=== PATIENT | female | born 1965 | race Caucasian/White ===

== ENCOUNTER 2019-04-03 07:45 | Outpatient (CLI) | payer BC ==
[2019-04-03 09:59] LABS: BASOPHILS % (AUTO) 0.5 %; EOSINOPHILS # (AUTO) 0.1 10^3/uL (0.0-0.7); EOSINOPHILS % (AUTO) 1.8 %; HGB - HEMOGLOBIN 14.3 g/dL (12.0-16.0); LYMPHOCYTES # (AUTO) 2.6 10^3/uL (1.5-3.5); LYMPHOCYTES % (AUTO) 34.5 %; MEAN CORPUSCULAR HEMOGLOBIN 28.5 pg (27.0-31.0); MEAN CORPUSCULAR HGB CONC 31.8 g/dL (32.0-36.0); MEAN CORPUSCULAR VOLUME 89.4 fL (81.0-99.0); MEAN PLATELET VOLUME 10.4 fL (7.9-10.8); MONOCYTES # (AUTO) 0.6 10^3/uL (0.0-1.0); MONOCYTES % (AUTO) 7.6 %; NEUTROPHILS # (AUTO) 4.2 10^3/uL (1.5-6.6); NEUTROPHILS % (AUTO) 55.2 %; PLT - PLATELET COUNT 299 10^3/uL (130-450); RED BLOOD COUNT 5.02 10^6/uL (4.20-5.40); RED CELL DISTRIBUTION WIDTH 14.4 % (12.0-15.0); WHITE BLOOD COUNT 7.6 x10^3/uL (4.8-10.8)
[2019-04-03 10:17] LABS: ALBUMIN 3.9 g/dL (3.2-5.5); ALBUMIN/GLOBULIN RATIO 1.2 (1.0-2.2); ALKALINE PHOSPHATASE 48 IU/L (42-121); ALT ALANINE AMINOTRANSFERASE 16 IU/L (10-60); AST ASPARTATE AMINOTRANSFERASE 16 IU/L (10-42); BILIRUBIN,TOTAL 0.6 mg/dL (0.2-1.0); BUN - BLOOD UREA NITROGEN 35 mg/dL (6-20); CALCIUM 9.3 mg/dL (8.5-10.3); CARBON DIOXIDE - CO2 23 mmol/L (21-32); CHLORIDE 107 mmol/L (101-111); CHOL/HDL RATIO 2.9 (<4.4); CHOLESTEROL 206 mg/dL; GFR - MDRD 58 (>89); GLUCOSE 102 mg/dL (70-100); HDL CHOLESTEROL 70 mg/dL; LDL CHOLESTEROL,CALCULATED 121 mg/dL; LDL/HDL RATIO 1.7 (<4.4); SODIUM 143 mmol/L (135-145); TOTAL PROTEIN 7.2 g/dL (6.7-8.2); VLDL CHOLESTEROL 15 mg/dL
[2019-04-03 10:22] LABS: HEMOGLOBIN A1C 0.63 g/dL
== END 2019-04-03 07:46 | disposition home or self-care (01) ==
LOC: LAB.S 07:45
PROVIDERS: ATTEND Physician Assistant
DX: Z00.00 Encounter for general adult medical examination without abnormal findings (principal); I10 Essential (primary) hypertension; E78.5 Hyperlipidemia, unspecified; R73.9 Hyperglycemia, unspecified
CPT/HCPCS: 36415; 80053; 80061; 83036; 83721; 84443; 85025

== ENCOUNTER 2019-05-02 07:44 | Outpatient (CLI) | payer BC | END 2019-05-02 07:45 | disposition home or self-care (01) | LOC: LAB.S 07:44 | PROVIDERS: ATTEND Physician Assistant | DX: E55.9 Vitamin D deficiency, unspecified (principal) | CPT/HCPCS: 36415; 82306 ==

== ENCOUNTER 2019-05-10 15:56 | Observation (INO) | payer BC ==
[~2019-05-10 15:56] MED LIST: DEXAMETHASONE 4 MG/ML VIAL IVP ONE; GLYCOPYRROLATE 1 MG/5 ML VIAL IVP ONE; KETOROLAC 30 MG/ML VIAL IVP ONE; MIDAZOLAM 2 MG/2 ML VIAL IVP ONE; NEOSTIGMINE 1 MG/1 ML 10 ML MDV IVP ONE; ONDANSETRON 4 MG/2 ML VIAL IVP ONE; PROPOFOL 200 MG/20 ML VIAL IVP ONE; ROCURONIUM 50 MG/5 ML VIAL IVP ONE; fentaNYL 250 MCG/5 ML VIAL IVP ONE
--- NOTE | 2019-05-10 16:33 | XRAY Report ---
Reason: pain Procedure Date: 05/10/2019 Accession Number: [id number] / [id number] Procedure: XR - Chest 1 View X-Ray CPT Code: 93387 FULL RESULT: EXAM: CHEST RADIOGRAPHY EXAM DATE: 05/10/2019 04:21 PM. CLINICAL HISTORY: Upper abdomen pain. Sharp back pain. COMPARISON: None. TECHNIQUE: 1 view. FINDINGS: Lungs/Pleura: No focal opacities evident. No pleural effusion. No pneumothorax. Mediastinum: Within exam limitations, the cardiomediastinal contour is normal. Other: Degenerative changes of both glenohumeral joints, otherwise no bony abnormalities identified. No free air. IMPRESSION: Degenerative changes of both glenohumeral joints noted, otherwise unremarkable single view chest. RADIA
[2019-05-10 16:37] LABS: BASOPHILS % (AUTO) 0.4 %; EOSINOPHILS # (AUTO) 0.1 10^3/uL (0.0-0.7); HGB - HEMOGLOBIN 13.5 g/dL (12.0-16.0); LYMPHOCYTES # (AUTO) 2.8 10^3/uL (1.5-3.5); LYMPHOCYTES % (AUTO) 26.6 %; MEAN CORPUSCULAR HEMOGLOBIN 27.6 pg (27.0-31.0); MEAN CORPUSCULAR HGB CONC 31.3 g/dL (32.0-36.0); MEAN CORPUSCULAR VOLUME 88.3 fL (81.0-99.0); MEAN PLATELET VOLUME 9.5 fL (7.9-10.8); MONOCYTES # (AUTO) 0.9 10^3/uL (0.0-1.0); MONOCYTES % (AUTO) 8.4 %; NEUTROPHILS # (AUTO) 6.5 10^3/uL (1.5-6.6); NEUTROPHILS % (AUTO) 63.3 %; PLT - PLATELET COUNT 268 10^3/uL (130-450); RED BLOOD COUNT 4.89 10^6/uL (4.20-5.40); RED CELL DISTRIBUTION WIDTH 14.5 % (12.0-15.0); WHITE BLOOD COUNT 10.3 x10^3/uL (4.8-10.8)
[2019-05-10 16:58] LABS: ALBUMIN 3.9 g/dL (3.2-5.5); BILIRUBIN,TOTAL 0.4 mg/dL (0.2-1.0); CALCIUM 9.7 mg/dL (8.5-10.3); TOTAL PROTEIN 7.7 g/dL (6.7-8.2)
[2019-05-10] MEDS ORDERED: HYDROmorphone 1 MG/ML CARPUJECT IVP STA (17:18)
[2019-05-10] MEDS ORDERED: ONDANSETRON 4 MG/2 ML VIAL IVP STA (17:18)
[2019-05-10] MEDS ORDERED: SODIUM CHLORIDE 0.9% 1,000 ML IV ONE (17:19)
--- NOTE | 2019-05-10 17:21 | ED Physician Documentation ---
History of Present Illness - Stated complaint Stated Complaint: BACK/CHEST PX - Additonal information Additional information: This is a 54-year-old female with a history of diverticulitis, HLD, who presents with epigastric abdominal pain radiating to her back. Patient states that she has had several episodes of this in the past after eating, but they have always resolved fairly quickly. Last night after dinner she began having pain in her epigastrium which radiates to the back and has worsened since then. She states the pain is currently severe, and worse with pressure on epigastrium and right upper quadrant. She has had pelvic surgeries, but no cholecystectomy or colin endectomy. She is nauseated but has not vomited. She denies changes to her bowel movements. No fever. Review of Systems Constitutional: denies: Fever Cardiac: denies: Chest pain / pressure Respiratory: denies: Dyspnea GI: reports: Abdominal Pain : denies: Dysuria Skin: denies: Rash Neurologic: denies: Generalized weakness Immunocompromised: denies: Immunocompromised PD PAST MEDICAL HISTORY - Past Medical History Neuro: Migraines GI: Diverticulitis - Past Surgical History General: Other (No cholecystectomy or appendectomy) - Allergies Allergies/Adverse Reactions: Allergies Allergy/AdvReac Type Severity Reaction Status Date / Time metronidazole [From Flagyl] AdvReac Nausea Verified 05/10/19 16:12 - Living Situation Living Arrangement: reports: At home - Social History Does the pt have substance abuse?: No - Family History Family history: reports: Non contributory PD ED PE NORMAL - Vitals Vital signs reviewed: Yes - General General: Alert and oriented X 3, No acute distress - HEENT HEENT: PERRL - Neck Neck: Supple, no meningeal sign - Cardiac Cardiac: RRR, No murmur - Respiratory Respiratory: Clear bilaterally - Abdomen Abdomen: Other (Soft, tender to palpation in the epigastrium in the right upper quadrant. Negative Summers sign. No lower abdominal tenderness. No left upper quadrant tenderness.) - Derm Derm: Warm and dry - Extremities Extremities: No deformity - Neuro Neuro: Alert and oriented X 3 - Psych Psych: Normal mood, Normal affect Results - Vitals Vitals: Vital Signs - 24 hr 05/10/19 05/10/19 05/10/19 16:05 18:00 19:12 Temperature 37 C Heart Rate 74 66 75 Respiratory 18 18 12 Rate Blood Pressure 151/73 H 122/84 H 111/68 O2 Saturation 97 98 98 05/10/19 05/10/19 20:23 21:22 Temperature Heart Rate 81 74 Respiratory 17 14 Rate Blood Pressure 130/94 H 130/87 H O2 Saturation 99 100 Oxygen O2 Source Room air - EKG (time done) 16:04 Other comments: Other comments (Rate 107, rhythm sinus tachycardia, axis normal. There is no ST segment elevation or depression. There is some T wave flattening in V2. QTc 458.) - Labs Labs: Laboratory Tests 05/10/19 05/10/19 05/10/19 16:29 16:29 16:29 WBC 10.3 RBC 4.89 Hgb 13.5 Hct 43.2 MCV 88.3 MCH 27.6 MCHC 31.3 L RDW 14.5 Plt Count 268 MPV 9.5 Neut # (Auto) 6.5 Lymph # (Auto) 2.8 [place] # (Auto) 0.9 Eos # (Auto) 0.1 Baso # (Auto) 0.0 Absolute Nucleated RBC 0.00 Nucleated RBC % 0.0 Sodium 142 Potassium 3.4 L Chloride 107 Carbon Dioxide 26 Anion Gap 9.0 BUN 33 H Creatinine 1.0 Estimated GFR (MDRD) 58 L Glucose 98 Calcium 9.7 Total Bilirubin 0.4 AST 16 ALT 14 Alkaline Phosphatase 54 Troponin I High Sens C-React Prot High Sens 27.1 Total Protein 7.7 Albumin 3.9 Globulin 3.8 Albumin/Globulin Ratio 1.0 Lipase 49 05/10/19 16:29 WBC RBC Hgb Hct MCV MCH MCHC RDW Plt Count MPV Neut # (Auto) Lymph # (Auto) [place] # (Auto) Eos # (Auto) Baso # (Auto) Absolute Nucleated RBC Nucleated RBC % Sodium Potassium Chloride Carbon Dioxide Anion Gap BUN Creatinine Estimated GFR (MDRD) Glucose Calcium Total Bilirubin AST ALT Alkaline Phosphatase Troponin I High Sens 2.6 C-React Prot High Sens Total Protein Albumin Globulin Albumin/Globulin Ratio Lipase - Rads (name of study) RUQ US Radiology: Other (Cholelithiasis and sonographic Summers sign present, concerning for cholecystitis. Possible echogenic mass/stone in the common bile duct, which is not consistently seen, and no CBD dilation) CXR Radiology: Other (No acute cardiopulmonary abnormality) PD MEDICAL DECISION MAKING - ED course Complexity details: considered differential (Biliary colic, cholecystitis, gastritis, dissection, PE, ACS, Pneumothorax, pneumonia) ED course: Patient is uncomfortable on initial exam, vital signs are unremarkable. She has focal tenderness in the epigastrium and especially in the right upper quadrant. She has no midline back tenderness. X-ray is unremarkable, CBC and CMP are also unremarkable. Troponin is negative, EKG has no signs of ischemia or dysrhythmia. Her oxygen saturation is normal, her heart rate is within normal limits, she has no signs of DVT, no history of blood clots, pulmonary embolism is highly unlikely. Her blood pressure is normal, and her pain is radiating from her RUQ, making aortic dissection exceedingly unlikely, particularly given that she has a better explanation for her pain. Ultrasound is obtained which shows Cholelithiasis, borderline wall thickening, and a sonographic Summers sign, concerning for cholecystitis. There was also question of an echogenic 6 mm structure/stone in the common bile duct, though this was not consistently seen, and patient has no signs of obstruction on her labs at this time. On repeat evaluation she continues to have abdominal pain and tenderness, though her vital signs remain stable. I discussed the results of work-up with the patient, she would like cholecystectomy - despite multiple doses of pain medications she continues to have abdominal symptoms. I contacted Dr. Swartz of surgery who admitted patient with plans for cholecystectomy. Departure - Departure Disposition: ED Place in Observation Clinical Impression: Cholecystitis Condition: Stable
--- NOTE | 2019-05-10 19:27 | Ultrasound Report ---
Reason: epigastric and RUQ pain after eating Procedure Date: 05/10/2019 Accession Number: [id number] / [id number] Procedure: US - Abdomen Limited CPT Code: FULL RESULT: EXAM: ABDOMEN ULTRASOUND LIMITED, RUQ EXAM DATE: 05/10/2019 07:00 PM. CLINICAL HISTORY: Epigastric and RUQ pain after eating. COMPARISON: None. TECHNIQUE: Real-time scanning was performed with static images obtained. FINDINGS: Liver: Mildly echogenic parenchyma. No masses. Normal overall size, 17.1 cm. Main portal vein flow: Hepatopetal. Gallbladder: Contracted with multiple large stones measuring as much as 1.6 cm. Borderline wall thickening measuring 3 mm. Localized tenderness over the gallbladder. Biliary System: CBD measures 5 mm. No intrahepatic or extrahepatic ductal dilatation. Echogenicity measuring about 6 mm in the common bile duct, not consistently seen, suspicious for stone. Other: Unremarkable right kidney and visualized pancreas. IMPRESSION: 1. Cholelithiasis with evidence of cholecystitis. 2. Possible common bile duct stone, but no ductal dilation at this time. 3. Mild fatty liver. RADIA
[2019-05-10] MEDS ORDERED: HYDROmorphone 2 MG/ML VIAL IVP STA (19:45)
[2019-05-10] MEDS ORDERED: ACETAMINOPHEN 1,000 MG/100 ML 100 ML IV PRN (22:03)
[2019-05-10] MEDS ORDERED: SODIUM CHLORIDE FLUSH 0.9% 10 ML SYRINGE IVP PRN (22:03)
[2019-05-10] MEDS ORDERED: HYDROmorphone PCA 20MG/100ML IV PRN (22:08)
[2019-05-10] MEDS ORDERED: LORazepam 2 MG/ML VIAL IVP PRN (22:11)
[2019-05-10] MEDS ORDERED: HYDROmorphone 2 MG/ML VIAL IVP SCH (23:00)
[2019-05-11] MEDS ORDERED: HYDROmorphone 2 MG/ML VIAL ONE ×4 (00:12→00:16)
[2019-05-11] MEDS: DEXTROSE 5%-0.45% NACL 1,000 ML IV SCH ×2 (00:34→08:13)
[2019-05-11] MEDS: PIPERACILLIN/TAZOBACTAM 3.375 GM in SODIUM CHLORIDE 0.9% MINIBAG 100 ML IV SCH ×3 (00:34→11:07)
[2019-05-11] MEDS: ONDANSETRON 4 MG/2 ML VIAL IVP PRN ×2 (00:34→08:13)
[2019-05-11] MEDS: SODIUM CHLORIDE FLUSH 0.9% 10 ML SYRINGE IVP SCH ×4 (00:34→23:43)
[2019-05-11 05:57] LABS: BASOPHILS % (AUTO) 0.4 %; EOSINOPHILS # (AUTO) 0.1 10^3/uL (0.0-0.7); EOSINOPHILS % (AUTO) 1.6 %; HGB - HEMOGLOBIN 11.7 g/dL (12.0-16.0); LYMPHOCYTES # (AUTO) 2.8 10^3/uL (1.5-3.5); LYMPHOCYTES % (AUTO) 35.9 %; MEAN CORPUSCULAR HEMOGLOBIN 27.7 pg (27.0-31.0); MEAN CORPUSCULAR HGB CONC 31.1 g/dL (32.0-36.0); MEAN CORPUSCULAR VOLUME 88.9 fL (81.0-99.0); MEAN PLATELET VOLUME 9.6 fL (7.9-10.8); MONOCYTES # (AUTO) 0.8 10^3/uL (0.0-1.0); MONOCYTES % (AUTO) 10.1 %; NEUTROPHILS % (AUTO) 51.7 %; PLT - PLATELET COUNT 208 10^3/uL (130-450); RED BLOOD COUNT 4.23 10^6/uL (4.20-5.40); RED CELL DISTRIBUTION WIDTH 14.2 % (12.0-15.0); WHITE BLOOD COUNT 7.7 x10^3/uL (4.8-10.8)
[2019-05-11 06:10] LABS: BILIRUBIN,TOTAL 0.7 mg/dL (0.2-1.0); CALCIUM 8.5 mg/dL (8.5-10.3); CREATININE 0.9 mg/dL (0.4-1.0); TOTAL PROTEIN 5.9 g/dL (6.7-8.2)
--- NOTE | 2019-05-11 10:35 | ANESTHESIA ---
Pre-Anesthesia VS, & Labs - Diagnosis symptomatic cholelithiasis - Procedure laparoscopic cholecystectomy Vital Signs: Temp Pulse Resp BP Pulse Ox 36.5 C 60 16 99/60 97 05/11/19 07:57 05/11/19 07:57 05/11/19 09:00 05/11/19 07:57 05/11/19 07:57 Height 5 ft 5 in Weight (kg) 98 kg Body Mass Index 35.9 - NPO >8 hours - Is Patient ?: No - Lab Results Current Lab Results: Laboratory Tests 05/11/19 05:23: Sodium 140, Potassium 3.3 L, Chloride 108, Carbon Dioxide 27, Anion Gap 5.0 L, BUN 23 H, Creatinine 0.9, Estimated GFR (MDRD) 65 L, Glucose 103 H, Calcium 8.5, Total Bilirubin 0.7, AST 50 H, ALT 36, Alkaline Phosphatase 53, Total Protein 5.9 L, Albumin 3.0 L, Globulin 2.9, Albumin/Globulin Ratio 1.0 05/11/19 05:23: WBC 7.7, RBC 4.23, Hgb 11.7 L, Hct 37.6, MCV 88.9, MCH 27.7, MCHC 31.1 L, RDW 14.2, Plt Count 208, MPV 9.6, Neut # (Auto) 4.0, Lymph # (Auto) 2.8, [place] # (Auto) 0.8, Eos # (Auto) 0.1, Baso # (Auto) 0.0, Absolute Nucleated RBC 0.00, Nucleated RBC % 0.0 05/10/19 16:29: Troponin I High Sens 2.6 05/10/19 16:29: C-React Prot High Sens 27.1 05/10/19 16:29: Sodium 142, Potassium 3.4 L, Chloride 107, Carbon Dioxide 26, Anion Gap 9.0, BUN 33 H, Creatinine 1.0, Estimated GFR (MDRD) 58 L, Glucose 98, Calcium 9.7, Total Bilirubin 0.4, AST 16, ALT 14, Alkaline Phosphatase 54, Total Protein 7.7, Albumin 3.9, Globulin 3.8, Albumin/Globulin Ratio 1.0, Lipase 49 05/10/19 16:29: WBC 10.3, RBC 4.89, Hgb 13.5, Hct 43.2, MCV 88.3, MCH 27.6, MCHC 31.3 L, RDW 14.5, Plt Count 268, MPV 9.5, Neut # (Auto) 6.5, Lymph # (Auto) 2.8, [place] # (Auto) 0.9, Eos # (Auto) 0.1, Baso # (Auto) 0.0, Absolute Nucleated RBC 0.00, Nucleated RBC % 0.0 Fish Bones: 05/11/19 05:23 05/11/19 05:23 Home Medications and Allergies Active Medications Hydromorphone HCl (Dilaudid Family Services Manager 20mg/100ml) 20 mg IV PRN PRN; Protocol PRN Reason: PAIN Last Admin: 05/11/19 00:57 Dose: 20 mg Dextrose/Sodium Chloride (D5.45ns) 1,000 mls @ 100 mls/hr IV .Q10H COUNTS INCLUDE 234 BEDS AT THE [facility] Last Admin: 05/11/19 08:13 Dose: 100 mls/hr Acetaminophen (Ofirmev) 100 mls @ 400 mls/hr IV Q6HR PRN PRN Reason: PAIN Piperacillin Sod/Tazobactam (Sod 3.375 gm/ Sodium Chloride) 100 mls @ 200 mls/hr IV Q6H DORIS Last Infusion: 05/11/19 07:33 Dose: Infused Lorazepam (Ativan Inj (Vial)) 0.5 mg IVP Q2H PRN PRN Reason: Anxiety Last Admin: 05/11/19 08:13 Dose: 0.5 mg Ondansetron HCl (Zofran Inj) 4 mg IVP Q6H PRN PRN Reason: Nausea / Vomiting Last Admin: 05/11/19 08:13 Dose: 4 mg Sodium Chloride (Normal Saline Flush 0.9%) 10 ml IVP 0100,0900,1700 DORIS Last Admin: 05/11/19 08:17 Dose: 10 ml Sodium Chloride (Normal Saline Flush 0.9%) 10 ml IVP PRN PRN PRN Reason: NEEDED PER PROVIDER ORDERS Allergies/Adverse Reactions: Allergies Allergy/AdvReac Type Severity Reaction Status Date / Time metronidazole [From Flagyl] AdvReac Nausea Verified 05/10/19 16:12 Anes History & Medical History - Anesthetic History Anesthesia Complications: reports: Post-Operative Nausea/Vomiting - Medical History Cardiovascular: reports: Hypertension Pulmonary: reports: None Gastrointestinal: reports: Diverticulitis Urinary: reports: None Neuro: reports: Migraines, Seizure disorder (once, had workup, takes topamax, none since and no furthur migraines) Musculoskeletal: reports: None Endocrine/Autoimmune: reports: None Blood Disorders: reports: None Skin: reports: None Smoking Status: Current every day smoker - Surgical History General: Other (No cholecystectomy or appendectomy) Gynecologic: section, Hysterectomy Orthopedic: ACL reconstruction Exam General: Alert Dental: WNL Mouth Opening: Greater than 4 Fingerbreadths Neck Mobility: Normal Mallampati classification: II Respiratory: Lungs clear Cardiovascular: Regular rate, Normal S1, Normal S2 Mental/Cognitive Status: Alert/Oriented X3 Plan Anesthesia Type: General Consent for Procedure(s) Verified and Reviewed: Yes Code Status: Attempt Resuscitation ASA classification: 2-Mild systemic disease Is this case an emergency?: No
[2019-05-11] MEDS ORDERED: SCOPOLAMINE PATCH TOP SCH (11:00)
[2019-05-11] MEDS ORDERED: POTASSIUM CHLOR 10 MEQ/100 ML 10 MEQ/100 ML BAG IV ONE (12:10)
[2019-05-11] MEDS ORDERED: BUPIVACAINE 0.5%-EPI 1:200000 PF 30 ML VIAL ONE (14:31)
[2019-05-11] MEDS ORDERED: LIDOCAINE-MPF 1% 30 ML VIAL ONE (14:31)
--- NOTE | 2019-05-11 14:41 | HISTORY & PHYSICAL EXAMINATION ---
HPI - Admitted From Admitted from: ED - History Obtained From Records Reviewed: RN notes reviewed, Old records reviewed History obtained from: Patient Exam limitations: No limitations - History of Present Illness Pain/Problem Location Description: Right Upper Quadrant Pain Severity at the worst: reports: Severe Pain Quality: reports: Sharp, Aching, Cramping, Throbbing Context-Pain started w/: reports: Eating, Position, Rest Timing: reports: Abrupt onset Duration: reports: Hours: (At least 12) Improved with: reports: Nothing Worsened by: reports: Inspiration, Movement, Palpation Associated symptoms: reports: Nausea, General Weakness PMH/PSH - Past Medical History Cardiovascular: positive: Hypertension Respiratory: positive: None Neuro: positive: Migraines, Seizure disorder (once, had workup, takes topamax, none since and no furthur migraines) Endocrine/Autoimmune: positive: None GI: positive: Diverticulitis : positive: None Psych: positive: Anxiety Musculoskeletal: positive: None Derm: positive: None - Past Surgical History General: positive: Other (No cholecystectomy or appendectomy) Ortho: positive: ACL reconstruction /LINER REPLACER: positive: section, Hysterectomy Social & Family Hx - Social History Smoking Status: Current every day smoker Does the pt have substance abuse?: No Additional Social History: 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 [employer] Status: Full Code Meds/Allgy - Home Medications Home Medications: Ambulatory Orders Medication Instructions Recorded Confirmed Atorvastatin Calcium 10 mg PO QPM 05/11/19 05/11/19 Ibuprofen/Diphenhydramine Cit 1 tab PO QPM 05/11/19 05/11/19 [Ibuprofen Pm Caplet] Sertraline HCl [Zoloft] 100 mg PO QPM 05/11/19 05/11/19 Topiramate [Topamax] 100 mg PO QPM 05/11/19 05/11/19 - Allergies Allergies/Adverse Reactions: Allergies Allergy/AdvReac Type Severity Reaction Status Date / Time metronidazole [From Flagyl] AdvReac Nausea Verified 05/10/19 16:12 Review of Systems - Constitutional Constitutional: reports: Fatigue, Weakness, Poor appetite - Eyes Eyes: denies: Irritation, Blurred vision - Ears, Nose & Throat Ears, Nose & Throat: denies: Tinnitus, Vertigo - Cardiovascular Cariovascular: reports: Lightheadedness. denies: Irregular heart rate, Palpitations, Chest pain - Respiratory Respiratory: denies: Cough, Wheezing, Snoring, Orthopnea - Gastrointestinal Gastrointestinal: reports: Abdominal pain, Nausea, Poor appetite - Genitourinary Genitourinary: denies: Dysuria, Frequency, Urgency - Musculoskeletal Musculoskeletal: denies: Muscle pain, Back pain, Muscle aches, Stiffness - Integumentary Integumentary: denies: Rash, Lesions - Neurological Neurological: denies: General weakness, Focal weakness - Endocrine Endocrine: denies: Polyuria, Polydypsia - Hematologic/Lymphatic Hematologic/Lymphatic: denies: Anemia, Bruising, Petechiae - All Other Systems All Other Systems: reports: Reviewed and negative Exam - Vital Signs Reviewed Vital Signs: Yes Vital Signs: Vital Signs x48h Temp Pulse Resp BP BP Pulse Ox 05/11/19 13:00 16 05/11/19 12:59 36.9 C 61 16 94/59 L 94 05/11/19 11:00 17 05/11/19 09:00 16 05/11/19 07:58 16 05/11/19 07:57 36.5 C 60 16 99/60 97 - Physical Exam General Appearance: positive: Alert, Moderate distress Eyes Bilateral: positive: Normal inspection, PERRL, EOMI ENT: positive: ENT inspection nml, Pharynx nml Neck: positive: Nml inspection, Thyroid nml, No JVD, Trachea midline. negative: Thyromegaly Respiratory: positive: Chest non-tender, No respiratory distress, Breath sounds nml Cardiovascular: positive: Regular rate & rhythm, No murmur, No gallop Peripheral Pulses: positive: 1+ Abdomen: positive: Nml bowel sounds, Tenderness, Other (Tender to palpation in the right upper quadrant. Positive voluntary guarding) Back: positive: Nml inspection, CVA tenderness (R). negative: CVA tenderness (L) Skin: positive: Color nml Extremities: positive: Non-tender Neurologic/Psychiatric: positive: Oriented x3, CN's nml (2-12) Results - Lab Results Fish Bones: 05/11/19 05:23 05/11/19 05:23 Other Lab Results: Lab Results x24hrs 05/11/19 05/11/19 05/10/19 Range/Units 05:23 05:23 16:29 WBC 7.7 (4.8-10.8) x10^3/uL RBC 4.23 (4.20-5.40) 10^6/uL Hgb 11.7 L (12.0-16.0) g/dL Hct 37.6 (37.0-47.0) % MCV 88.9 (81.0-99.0) fL MCH 27.7 (27.0-31.0) pg MCHC 31.1 L (32.0-36.0) g/dL RDW 14.2 (12.0-15.0) % Plt Count 208 (130-450) 10^3/uL MPV 9.6 (7.9-10.8) fL Neut # (Auto) 4.0 (1.5-6.6) 10^3/uL Lymph # (Auto) 2.8 (1.5-3.5) 10^3/uL [place] # (Auto) 0.8 (0.0-1.0) 10^3/uL Eos # (Auto) 0.1 (0.0-0.7) 10^3/uL Baso # (Auto) 0.0 (0.0-0.1) 10^3/uL Absolute Nucleated RBC 0.00 x10^3/uL Nucleated RBC % 0.0 /100WBC Sodium 140 (135-145) mmol/L Potassium 3.3 L (3.5-5.0) mmol/L Chloride 108 (101-111) mmol/L Carbon Dioxide 27 (21-32) mmol/L Anion Gap 5.0 L (6-13) BUN 23 H (6-20) mg/dL Creatinine 0.9 (0.4-1.0) mg/dL Estimated GFR (MDRD) 65 L (>89) Glucose 103 H (70-100) mg/dL Calcium 8.5 (8.5-10.3) mg/dL Total Bilirubin 0.7 (0.2-1.0) mg/dL AST 50 H (10-42) IU/L ALT 36 (10-60) IU/L Alkaline Phosphatase 53 (42-121) IU/L Troponin I High Sens 2.6 (2.3-14.8) pg/mL C-React Prot High Sens mg/L Total Protein 5.9 L (6.7-8.2) g/dL Albumin 3.0 L (3.2-5.5) g/dL Globulin 2.9 (2.1-4.2) g/dL Albumin/Globulin Ratio 1.0 (1.0-2.2) Lipase (22-51) U/L 05/10/19 05/10/19 05/10/19 Range/Units 16:29 16:29 16:29 WBC 10.3 (4.8-10.8) x10^3/uL RBC 4.89 (4.20-5.40) 10^6/uL Hgb 13.5 (12.0-16.0) g/dL Hct 43.2 (37.0-47.0) % MCV 88.3 (81.0-99.0) fL MCH 27.6 (27.0-31.0) pg MCHC 31.3 L (32.0-36.0) g/dL RDW 14.5 (12.0-15.0) % Plt Count 268 (130-450) 10^3/uL MPV 9.5 (7.9-10.8) fL Neut # (Auto) 6.5 (1.5-6.6) 10^3/uL Lymph # (Auto) 2.8 (1.5-3.5) 10^3/uL [place] # (Auto) 0.9 (0.0-1.0) 10^3/uL Eos # (Auto) 0.1 (0.0-0.7) 10^3/uL Baso # (Auto) 0.0 (0.0-0.1) 10^3/uL Absolute Nucleated RBC 0.00 x10^3/uL Nucleated RBC % 0.0 /100WBC Sodium 142 (135-145) mmol/L Potassium 3.4 L (3.5-5.0) mmol/L Chloride 107 (101-111) mmol/L Carbon Dioxide 26 (21-32) mmol/L Anion Gap 9.0 (6-13) BUN 33 H (6-20) mg/dL Creatinine 1.0 (0.4-1.0) mg/dL Estimated GFR (MDRD) 58 L (>89) Glucose 98 (70-100) mg/dL Calcium 9.7 (8.5-10.3) mg/dL Total Bilirubin 0.4 (0.2-1.0) mg/dL AST 16 (10-42) IU/L ALT 14 (10-60) IU/L Alkaline Phosphatase 54 (42-121) IU/L Troponin I High Sens (2.3-14.8) pg/mL C-React Prot High Sens 27.1 mg/L Total Protein 7.7 (6.7-8.2) g/dL Albumin 3.9 (3.2-5.5) g/dL Globulin 3.8 (2.1-4.2) g/dL Albumin/Globulin Ratio 1.0 (1.0-2.2) Lipase 49 (22-51) U/L - Diagnostic Imaging Results Diagnostic Imaging Results Comments: Cholelithiasis and cholecystitis with a possible common duct stone. Impression/Plan - Problem List Problem List: Cholelithiasis and cholecystitis with possible common duct stone. I have recommended laparoscopic cholecystectomy with attempted intraoperative cholangiogram. We have discussed the risks and benefits of the procedure and the patient has expressed a desire to continue with the plan.
[2019-05-11] MEDS ORDERED: IOTHALAMATE MEGLUMINE 50 ML VIAL ONE (15:03)
[2019-05-11] MEDS ORDERED: IOTHALAMATE MEGLUMINE 50 ML VIAL IVP ONE ×2 (15:03)
[2019-05-11] MEDS ORDERED: LIDOCAINE 1% 10 ML MDV SUBQ ONE (15:04)
[2019-05-11] MEDS ORDERED: BUPIVACAINE 0.5%-EPI 1:200000 PF 30 ML VIAL SUBQ ONE (15:04)
[2019-05-11] MEDS ORDERED: LACTATED RINGERS 1,000 ML IV ONE ×2 (15:04→16:53)
--- NOTE | 2019-05-11 15:47 | OPERATIVE REPORT ---
Operative Report - General Admit Date: 05/10/19 Procedure Date: 05/11/19 Planned Procedure: Laparoscopic Cholecystectomy with Intraoperative Cholangiogram5 Pre-Op Diagnosis: Acute cholecystitis with possible choledocholithiasis Procedure Performed: Laparoscopic cholecystectomy with intraoperative cholangiogram Post Op Diagnosis: Acute cholecystitis and cholelithiasis - Procedure Note Primary Surgeon: Maxime Anesthesia Provider: ELLEN Miramontes Anesthesia Technique: General ET tube, Local Pathology: Gall bladder in formalin to pathology Estimated Blood Loss (mL): 25 Findings: Normal cholangiogram with no evidence of common bile duct obstruction Complications: None apparent - Other Other Information/Narrative: Up waiting room and placed in the supine position on the operating table. Following successful induction of general endotracheal anesthesia, appropriate padding of all bony prominences, and placement of appropriate monitors, the abdomen was prepped and draped in the standard surgical fashion. A timeout was held per SCOAP protocol. All elements of the surgical safety checklist were followed before, during, and after this procedure. Following infiltration with local anesthetic to create a field block, an incision was created just inferior to the umbilicus and carried down through the skin and subcutaneous tissue to reveal the fascia below. 2-0 Vicryl sutures were placed on either side of the midline and the abdomen was entered under direct vision using a 15 blade scalpel. A 12 mm blunt Dao balloon trocar was placed in the abdominal cavity and it was insufflated to 15 mmHg pressure. The patient was placed in reverse Trendelenburg position with the left side rotated toward the floor. A 5 mm trocar was placed in the epigastrium and 2 more in the right upper quadrant again following infiltration with local anesthetic. We immediately visualized the gallbladder which was acutely edematous with omental adhesions. The fundus of the gallbladder was grasped with an Allis clamp and elevated over the dome of the liver. This revealed the region of the cholecysto hepatoduodenal ligament. Careful dissection was undertaken to reveal the fundus and neck of the gallbladder and then to define the cystic duct and cystic artery. Cystic duct was addressed with a clip distally.A charlene was created proximal to the clip so that we might perform a cholangiogram. A taut Cholangiocath was placed in this opening and a cholangiogram performed. This revealed free flow of contrast into the duodenum and normal-appearing intra-and extrahepatic biliary radicles. There was no clear evidence of an obstruction.The catheter was then removed. The duct was clipped 3 times proximally and divided. The cystic artery was addressed with hemoclips proximally and distally and divided. The gallbladder was then liberated from its bed in the liver using Bovie cautery. It was noted to be acutely edematous. It was placed in a endoscopic catchment bag and removed by the umbilical port with a camera in the epigastric position. The abdomen was checked for hemostasis. It was irrigated with 1 L of warm saline solution and aspirated free of all fluid and particulate matter. The trochars were then removed under direct vision. The abdomen was desufflated. The umbilical incision was closed with interrupted 0 Vicryl sutures and Monocryl stitches were placed in the skin. All sponge, needle, and instrument counts were correct at the conclusion of the case. The patient was allowed to awake from anesthesia without difficulty and taken to the postanesthesia care unit in good condition.
[2019-05-11] MEDS ORDERED: HYDROmorphone 0.5 MG/0.5 ML SYRINGE IVP PRN (15:53)
[2019-05-11] MEDS ORDERED: ONDANSETRON 4 MG/2 ML VIAL IVP PRN (15:53)
[2019-05-11] MEDS ORDERED: ACETAMINOPHEN 1,000 MG/100 ML 100 ML IV ONE (16:31)
[2019-05-11] MEDS ORDERED: HYDROmorphone 0.5 MG/0.5 ML SYRINGE ONE ×2 (16:32→17:02)
[2019-05-11] MEDS ORDERED: ALBUTEROL NEB 2.5 MG/3 ML INH ONE (16:37)
[2019-05-11] MEDS ORDERED: PROMETHAZINE 25 MG/1 ML VIAL ONE (16:37)
--- NOTE | 2019-05-11 17:58 | XRAY Report ---
Reason: Cholangiogram Procedure Date: 05/11/2019 Accession Number: [id number] / [id number] Procedure: [place] - OR Cholangiogram CPT Code: FULL RESULT: EXAM: INTRAOPERATIVE CHOLANGIOGRAM EXAM DATE: 05/11/2019 04:04 PM. CLINICAL HISTORY: Cholangiogram. COMPARISONS: None. TECHNIQUE: Dr. Swartz performed the procedure. Please see the operative notes for details. Fluoroscopy Time: 0.2 minutes. Number of Images: 1. FINDINGS IMPRESSION: A catheter has been placed into the cystic duct remnant following cholecystectomy. Cholangiography shows opacification of the bile ducts. Visualized ducts show no filling defects. Passage of contrast into the duodenum documented. RADIA
[2019-05-11] MEDS: oxyCODONE 5 MG TABLET PO PRN ×2 (19:15→22:51)
[2019-05-11] MEDS: ACETAMINOPHEN 500 MG TABLET PO PRN (19:16)
[2019-05-12] MEDS: oxyCODONE 5 MG TABLET PO PRN ×3 (03:26→10:59)
[2019-05-12] MEDS: ACETAMINOPHEN 500 MG TABLET PO PRN ×2 (03:35→11:00)
[2019-05-12] MEDS: SODIUM CHLORIDE FLUSH 0.9% 10 ML SYRINGE IVP SCH (09:28)
[2019-05-12 11:00] VITALS: BP 113/60
--- NOTE | 2019-06-15 15:30 | PROVIDER PROGRESS NOTE ---
Subjective - Prog Note Date Prog Note Date: 05/11/19 - Subjective Pt reports feeling: Improved Objective - Vital Signs/Intake & Output Reviewed Vital Signs: Yes - Objective General Appearance: positive: No acute distress, Alert Abdomen: positive: Other (expected postop tenderness; incisions healing well) Neurologic/Psychiatric: positive: Oriented x3 - Lab Results Fish Bones: 05/11/19 05:23 05/11/19 05:23 Assessment/Plan - Problem List (1) Cholecystitis Impression: doing well PO Day 1 s/p lap chelsey. Rec: home today; usual precautions, f/u 1 week.
== END 2019-05-12 11:19 | disposition home or self-care (01) ==
LOC: ED 15:56 → MS2 22:03
PROVIDERS: ADMIT Surgery; ATTEND Internal Medicine Gastroenterology
PROC: 0FT44ZZ Resection of Gallbladder, Percutaneous Endoscopic Approach (ICD-10-PCS; principal; 2019-05-10)
DX: K80.12 Calculus of gallbladder with acute and chronic cholecystitis without obstruction (principal); K82.8 Other specified diseases of gallbladder; I10 Essential (primary) hypertension; G43.909 Migraine, unspecified, not intractable, without status migrainosus; G40.909 Epilepsy, unspecified, not intractable, without status epilepticus; F17.200 Nicotine dependence, unspecified, uncomplicated; Z79.899 Other long term (current) drug therapy; Z90.710 Acquired absence of both cervix and uterus; Z87.19 Personal history of other diseases of the digestive system
CPT/HCPCS: 36415; 47563; 71045; 74300; 76705; 80053; 83690; 84484; 85025; 86141; 88304; 93005; 96361; 96374; 96375; 96376; 99284; 99285; A9270; J0131; J1170; J2060; J3010; J3490; J7120; Q9961

== ENCOUNTER 2019-06-20 07:57 | Outpatient (CLI) | payer BC ==
--- NOTE | 2019-06-28 10:27 | Mammography Report ---
Reason: SCREENING MAMMO Procedure Date: 06/20/2019 Accession Number: [id number] / [id number] Procedure: IVY - Screening Mammo w/Chepe CPT Code: FULL RESULT: EXAM: Screening Mammo w/Chepe DATE: 06/20/2019 8:30 AM CLINICAL HISTORY: Routine screening TECHNIQUE: (B) - Bilateral CC and MLO views were obtained. COMPARISON: 04/28/2018, 02/18/2017, 05/10/2014 and 12/08/2012 PARENCHYMAL PATTERN: (A) - The breasts demonstrate scattered fibroglandular densities bilaterally. FINDINGS: No significant interval change. There are no suspicious masses, calcifications, or areas of distortion. IMPRESSION: Negative examination. BI-RADS category 1. RECOMMENDATION: (ANNUAL) - Recommend routine annual screening mammography. BI-RADS CATEGORY: (1) - Negative. STANDARD QUALIFYING STATEMENTS: 1. This examination was not reviewed with the aid of Computer-Aided Detection (CAD). 2. A negative or benign imaging report should not preclude biopsy if clinically suspicious findings are present. 3. Dense breasts may obscure an underlying neoplasm. 4. This examination was reviewed with the aid of 3D breast imaging (tomosynthesis).
== END 2019-06-20 07:58 | disposition home or self-care (01) ==
LOC: DI 07:57
DX: Z12.31 Encounter for screening mammogram for malignant neoplasm of breast (principal)
CPT/HCPCS: 77063; 77067

== ENCOUNTER 2019-11-20 07:48 | Outpatient (CLI) | payer BC ==
[2019-11-20 10:22] LABS: CALCIUM 9.2 mg/dL (8.5-10.3)
== END 2019-11-20 07:49 | disposition home or self-care (01) ==
LOC: LAB.S 07:48
PROVIDERS: ATTEND Physician Assistant
DX: I10 Essential (primary) hypertension (principal)
CPT/HCPCS: 36415; 80048

== ENCOUNTER 2019-11-20 17:07 | Outpatient (CLI) | payer BC ==
[2019-11-20] MEDS ORDERED: IOVERSOL 320 50 ML VIAL ONE (17:16)
[2019-11-20] MEDS ORDERED: IOVERSOL 320 100 ML VIAL IVP ONE ×2 (17:16→18:23)
[2019-11-20] MEDS ORDERED: IOVERSOL 320 50 ML VIAL PO ONE (18:23)
--- NOTE | 2019-11-20 22:22 | CT Report ---
Reason: GROIN PAIN, LT Procedure Date: 11/20/2019 Accession Number: [id number] / [id number] Procedure: CT - Abdomen/Pelvis W CPT Code: Final Report FULL RESULT: EXAM: CT ABDOMEN AND PELVIS EXAM DATE: 11/20/2019 06:20 PM. CLINICAL HISTORY: Left lower quadrant and groin pain for 3 months. COMPARISONS: ABDOMEN LIMITED 05/10/2019 6:20 PM. TECHNIQUE: Routine helical CT imaging was performed through the abdomen and pelvis. IV contrast: 100 mL Optiray 320. Enteric contrast: Present Reconstructions: Coronal and sagittal. In accordance with CT protocol optimization, one or more of the following dose reduction techniques were utilized for this exam: automated exposure control, adjustment of mA and/or KV based on patient size, or use of iterative reconstructive technique. FINDINGS: ABDOMEN: Liver: No significant abnormality. Stomach/Distal Esophagus: No significant abnormality. Gallbladder: Cholecystectomy. Bile Ducts: No significant abnormality. Pancreas: No significant abnormality. Spleen: No significant abnormality. Kidneys: No suspicious solid appearing lesion. No hydronephrosis. Adrenals: No significant abnormality. Bowel: No obstruction. Average fecal residual. There is long segment mild wall thickening of the sigmoid colon. The area is equivocal fat stranding adjacent to the proximal sigmoid colon (image 73 series 3). Moderate descending as well as sigmoid colon diverticulosis present. Appendix: Normal. Lymph Nodes: No pathologically enlarged nodes. Vasculature: Normal caliber aorta. Mild aortic atherosclerosis. Fluid: No significant free fluid. Abdominal Wall: No significant abnormality. Other: No significant abnormality. PELVIS: Uterus and Ovaries: Surgically absent uterus. Ovaries are not visualized, possibly surgically absent as well. Bladder: No significant abnormality. Lymph Nodes: No pathologically enlarged nodes. Fluid: No significant free fluid. Other: None. BONES: No suspicious bony lesions. Severe degenerative disk disease within the lower lumbar spine. LOWER CHEST: Subsegmental atelectasis and/or scarring within the medial portion of the right middle lobe paramediastinal location. No significant consolidation or effusion. IMPRESSION: 1. There is moderate descending and sigmoid: diverticulosis. Very subtle fat stranding suspected adjacent to the proximal sigmoid colon, artifact versus early sigmoid diverticulitis. 2. Long segment wall thickening of the sigmoid colon may be due to incomplete distention versus smooth muscle hypertrophy from chronic constipation. 3. There is no evidence of bowel obstruction. Appendix is normal. 4. Prior cholecystectomy. No pathologic biliary dilation. RADIA
== END 2019-11-20 17:08 | disposition home or self-care (01) ==
LOC: DI 17:07
PROVIDERS: ATTEND Physician Assistant
DX: K57.30 Diverticulosis of large intestine without perforation or abscess without bleeding (principal); Z90.49 Acquired absence of other specified parts of digestive tract; I10 Essential (primary) hypertension
CPT/HCPCS: 36415; 74177; 80048; Q9967

== ENCOUNTER 2019-12-26 10:17 | Outpatient (CLI) | payer BC ==
--- NOTE | 2019-12-26 14:11 | XRAY Report ---
Reason: LEFT GROIN PAIN Procedure Date: 12/26/2019 Accession Number: [id number] / [id number] Procedure: WCP - Pelvis 1 View CPT Code: Final Report FULL RESULT: EXAM: PELVIS RADIOGRAPHY EXAM DATE: 12/26/2019 10:17 AM. CLINICAL HISTORY: Left groin pain. COMPARISON: ABDOMEN/PELVIS W/ 11/20/2019 6:11 PM. TECHNIQUE: 1 view. FINDINGS: There is moderate to advanced narrowing of the left hip joint space, with subchondral sclerotic changes of the acetabulum and femoral head. No fracture or dislocation detected at either hip. The imaged portion of the bony pelvis appears intact, with the lower sacrum and coccyx partially obscured by bowel gas. The sacroiliac joints appear within normal limits. Scattered vascular calcifications of the lower true pelvis. IMPRESSION: Moderate degenerative changes at the left hip. The visualized bony pelvis appears intact.. RADIA
== END 2019-12-26 23:59 | disposition home or self-care (01) ==
LOC: DI.WCP 10:17
PROVIDERS: ATTEND Physician Assistant
DX: M16.12 Unilateral primary osteoarthritis, left hip (principal)
CPT/HCPCS: 72170

== ENCOUNTER 2021-03-16 10:52 | Outpatient (CLI) | payer BC ==
[2021-03-16 16:21] LABS: BASOPHILS # (AUTO) 0.1 10^3/uL (0.0-0.1); BASOPHILS % (AUTO) 0.6 %; EOSINOPHILS # (AUTO) 0.2 10^3/uL (0.0-0.7); EOSINOPHILS % (AUTO) 2.2 %; HCT - HEMATOCRIT 45.3 % (37.0-47.0); HGB - HEMOGLOBIN 14.2 g/dL (12.0-16.0); LYMPHOCYTES % (AUTO) 37.8 %; MEAN CORPUSCULAR HEMOGLOBIN 28.4 pg (27.0-31.0); MEAN CORPUSCULAR HGB CONC 31.3 g/dL (32.0-36.0); MEAN CORPUSCULAR VOLUME 90.6 fL (81.0-99.0); MEAN PLATELET VOLUME 10.4 fL (7.9-10.8); MONOCYTES # (AUTO) 0.5 10^3/uL (0.0-1.0); MONOCYTES % (AUTO) 6.6 %; NEUTROPHILS # (AUTO) 4.1 10^3/uL (1.5-6.6); NEUTROPHILS % (AUTO) 52.2 %; PLT - PLATELET COUNT 277 10^3/uL (130-450); RED CELL DISTRIBUTION WIDTH 14.7 % (12.0-15.0); WHITE BLOOD COUNT 7.8 x10^3/uL (4.8-10.8)
[2021-03-16 16:36] LABS: ALBUMIN 4.3 g/dL (3.2-5.5); ALBUMIN/GLOBULIN RATIO 1.4 (1.0-2.2); BILIRUBIN,TOTAL 0.6 mg/dL (0.2-1.0); CALCIUM 9.4 mg/dL (8.5-10.3); CREATININE 0.9 mg/dL (0.4-1.0); POTASSIUM 3.5 mmol/L (3.5-5.0); TOTAL PROTEIN 7.4 g/dL (6.7-8.2)
[2021-03-16 16:51] LABS: THYROID STIMULATING HORMONE 2.78 uIU/mL (0.34-5.60)
[2021-03-19 14:32] LABS: PROTEIN C ACTIVITY 183 % normal (70-180)
== END 2021-03-16 10:53 | disposition home or self-care (01) ==
LOC: LAB.S 10:52
PROVIDERS: ATTEND Family Medicine
DX: Z00.00 Encounter for general adult medical examination without abnormal findings (principal); I10 Essential (primary) hypertension; E78.5 Hyperlipidemia, unspecified; Z83.2 Family history of diseases of the blood and blood-forming organs and certain disorders involving the immune mechanism
CPT/HCPCS: 36415; 80053; 81241; 81599; 84443; 85025; 85303; 85306

== ENCOUNTER 2022-09-03 13:17 | Outpatient (CLI) | payer OTHER ==
--- NOTE | 2022-09-03 16:59 | XRAY Report ---
PROCEDURE: Cervical Spine Comp w/Flex/Ext INDICATIONS: LEFT SHOULDER PAIN, CERVICALGIA TECHNIQUE: 7 views of the cervical spine were acquired. COMPARISON: None. FINDINGS: Bones: No fractures or dislocations to the T1 level. There is straightening of normal cervical lord osis. Degenerative endplate changes and loss of disc height throughout cervical spine is seen most no tably at C5-6 and C6-7 levels. No suspicious bony lesions. There is decreased range of motion betwee n flexion and extension, with preserved cervical spine alignment. Oblique views shows bilateral bony foraminal stenosis at C6-7 level. Soft tissues: Prevertebral soft tissues are normal in thickness. IMPRESSION: 1. Degenerative disc disease throughout cervical spine. No acute fracture or dislocation. 2. Decreased range of motion on lateral flexion and extension views with preserved cervical spine ali gnment. 3. Suggestion of bilateral bony foraminal stenosis at C6-7 level. Reviewed by: Kevin Laguerre MD on 09/03/2022 4:57 PM PST Approved by: Kevin Laguerre MD on 09/03/2022 4:57 PM PST Station ID: [id number]
--- NOTE | 2022-09-03 16:59 | XRAY Report ---
PROCEDURE: Shoulder 3 View LT INDICATIONS: LEFT SHOULDER PAIN, CERVICALGIA TECHNIQUE: 3 views of the shoulder were acquired. COMPARISON: None. FINDINGS: Bones: There is severe glenohumeral joint osteoarthritis with complete loss of joint space, extensiv e subchondral sclerosis and prominent inferior marginal osteophyte formation. Mild acromioclavicular joint osteoarthritic changes also seen. No fractures or dislocations. No suspicious bony lesions. V isualized ribs appear intact. Soft tissues: No suspicious soft tissue calcifications. IMPRESSION: Severe glenohumeral joint osteoarthritis and mild acromioclavicular joint osteoarthritis . No fracture or dislocation. No gross soft tissue abnormalities. Reviewed by: Kevin Laguerre MD on 09/03/2022 4:58 PM PST Approved by: Kevin Laguerre MD on 09/03/2022 4:58 PM PST Station ID: [id number]
== END 2022-09-03 13:18 | disposition home or self-care (01) ==
LOC: DI 13:17
PROVIDERS: ATTEND Physician Assistant
DX: M50.31 Other cervical disc degeneration, high cervical region (principal); M19.012 Primary osteoarthritis, left shoulder

== ENCOUNTER 2022-11-24 15:01 | Outpatient (CLI) | payer OTHER ==
--- NOTE | 2022-11-26 09:56 | Mammography Report ---
BILATERAL DIGITAL SCREENING MAMMOGRAM 3D/2D: 11/24/2022 CLINICAL: Routine screening. Comparison is made to exams dated: 06/20/2019 mammogram - [facility] and 04/28/2018 mammogram - [facility]. There are scattered areas of fibroglandular density in both breasts (category b / 25%-50% glandular t issue). No significant masses, calcifications, or other findings are seen in either breast. There has been no significant interval change. IMPRESSION: NEGATIVE There is no mammographic evidence of malignancy. A 1 year screening mammogram is recommended. Based on the Tyrer Cuzick model (a risk assessment model) the patients lifetime risk is 8.1% and her 10 year risk is 2.6%. According to the ACR, ACS, and NCCN guidelines, an annual breast MRI exam estee g with mammogram is recommended if the patients lifetime risk is 20% or greater. This exam was interpreted at Station ID: [id number]. NOTE: For mammograms, a report in lay terms will be sent to the patient. Approximately 15% of breast malignancies will not be visualized mammographically. In the management of a palpable breast mass, a negative mammogram must not discourage biopsy of a clinically suspicious lesion. Electronically Signed By: Jordy bull/cate:11/25/2022 10:35:01 letter sent: No_Letter ACR BI-RADS Category 1: Negative 3341F PARENCHYMAL PATTERN: (A) - The breast(s) demonstrate(s) scattered fibroglandular densities. BI-RADS CATEGORY: (1) - 1 Mammogram [id number] 1 year screening LATERALITY: (B)
== END 2022-11-24 15:02 | disposition home or self-care (01) ==
LOC: DI 15:01
DX: Z12.31 Encounter for screening mammogram for malignant neoplasm of breast (principal)

== ENCOUNTER 2023-04-25 12:00 | Emergency (ER) | payer BC, OTHER ==
[2023-04-25 12:11] VITALS: O2SAT 99
[2023-04-25] MEDS ORDERED: PHENAZOPYRIDINE 100 MG TABLET PO STA (12:25)
[2023-04-25 12:40] LABS: BILIRUBIN,URINE NEGATIVE (NEGATIVE); CLARITY,URINE SL. CLOUDY (CLEAR); GLUCOSE, URINE (UA) NEGATIVE (NEGATIVE); KETONES,URINE (UA) TRACE mg/dL (NEGATIVE); LEUKOCYTE ESTERASE, URINE SMALL (NEGATIVE); NITRITE,URINE NEGATIVE (NEGATIVE); OCCULT BLOOD,URINE LARGE (NEGATIVE); PH,URINE 5.5 PH (5.0-7.5); PROTEIN,URINE 100 mg/dL (NEGATIVE); UROBILINOGEN,URINE 0.2 (NORMAL) E.U./dL (NORMAL)
--- NOTE | 2023-04-25 12:43 | ED Physician Documentation ---
PD HPI FEMALE - Stated complaint Stated Complaint: GI - Chief complaint Chief Complaint: General - History obtained from History obtained from: Patient - Additional information Additional information: Patient is a 58-year-old female presenting for evaluation of dysuria and frequency since this morning. Patient denies fevers or chills. No visible blood in her urine. Denies vaginal bleeding or discharge. Has had a prior hysterectomy. Reports having had a UTI in the past and this feels similar. Review of Systems Constitutional: denies: Fever Cardiac: denies: Chest pain / pressure Respiratory: denies: Dyspnea GI: denies: Abdominal Pain, Vomiting : reports: Dysuria, Frequency. 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 - Present Medications Home Medications: Ambulatory Orders Medication Instructions Recorded Confirmed Atorvastatin Calcium 10 mg PO QPM 05/11/19 05/11/19 Ibuprofen/Diphenhydramine Cit 1 tab PO QPM 05/11/19 05/11/19 [Ibuprofen Pm Caplet] Ondansetron Odt [Zofran] 4 mg TL Q6H PRN #20 tablet 05/11/19 Sertraline HCl [Zoloft] 100 mg PO QPM 05/11/19 05/11/19 Topiramate [Topamax] 100 mg PO QPM 05/11/19 05/11/19 oxyCODONE/ACET 5/325 [Percocet 5 1 each PO Q4H PRN #20 tablet MDD 6 05/11/19 mg/325 mg] Nitrofurantoin [Macrobid] 1 cap PO BID #10 cap 04/25/23 Phenazopyridine HCl [Pyridium] 200 mg PO TID PRN #6 tablet 04/25/23 - Allergies Allergies/Adverse Reactions: Allergies Allergy/AdvReac Type Severity Reaction Status Date / Time metronidazole [From Flagyl] AdvReac Nausea Verified 05/10/19 16:12 - Social History Does the pt smoke?: No Smoking Status: Never smoker Does the pt have substance abuse?: No - POLST POLST Status: Full Code PD ED PE NORMAL - General General: Alert and oriented X 3, No acute distress, Well developed/nourished - HEENT HEENT: Atraumatic - Neck Neck: Supple, no meningeal sign - Cardiac Cardiac: RRR - Respiratory Respiratory: No respiratory distress, Clear bilaterally - Abdomen Abdomen: Soft, Non tender, Non distended - Derm Derm: Warm and dry - Neuro Neuro: Normal speech Results - Vitals Vitals: Vital Signs - 24 hr 04/25/23 04/25/23 12:05 12:55 Temperature 36.7 C 36.5 C Heart Rate 97 81 Respiratory 20 18 Rate Blood Pressure 150/113 H 144/99 H O2 Saturation 99 99 Oxygen O2 Source Room air - Labs Labs: Laboratory Tests 04/25/23 12:20 Urine Color YELLOW Urine Clarity SL. CLOUDY Urine pH 5.5 Ur Specific [place] >=1.030 H Urine Protein 100 H Urine Glucose (UA) NEGATIVE Urine Ketones TRACE Urine Occult Blood LARGE H Urine Nitrite NEGATIVE Urine Bilirubin NEGATIVE Urine Urobilinogen 0.2 (NORMAL) Ur Leukocyte Esterase SMALL H Urine RBC 11-25 H Urine WBC 11-25 H Ur Squamous Epith Cells RARE Squamous Urine Bacteria Moderate H Ur Microscopic Review INDICATED Urine Culture Comments INDICATED PD Medical Decision Making - ED course Complexity details: reviewed results, re-evaluated patient ED course: Patient with UTI symptoms since this morning. She is afebrile, well-appearing, benign abdominal exam. Urine analysis is concerning for infection.Patient started on antibiotics. She is counseled on treatment plan and advised on concerning symptoms to return for. Urine culture is pending. Departure - Departure Disposition: 01 Home, Self Care Clinical Impression: UTI (urinary tract infection) Condition: Stable Instructions: ED UTI Cystitis Female Prescriptions: Nitrofurantoin [Macrobid] 1 cap PO BID #10 cap Phenazopyridine HCl [Pyridium] 200 mg PO TID PRN #6 tablet PRN Reason: dysuria Comments: You have a urinary tract infection I have sent a prescription for an antibiotic to the [facility] pharmacy along with Pyridium to help with the discomfort. Please make sure to complete the course of the antibiotics. Return to the ER if you develop worsening symptoms such as a fever or inability to tolerate your antibiotics. Forms: PCP List Discharge Date/Time: 04/25/23 12:55
[2023-04-25 12:46] LABS: BACTERIA,URINE Moderate /HPF (None Seen); SQUAMOUS EPITHELIAL CELL,UR RARE Squamous (<= Few)
[2023-04-25] MEDS ORDERED: NITROFURANTOIN MACRO 100 MG CAPSULE PO STA (12:48)
[2023-04-25 12:58] VITALS: BP 144/99
== END 2023-04-25 12:55 | disposition home or self-care (01) ==
LOC: ED 12:00
DX: N39.0 Urinary tract infection, site not specified (principal)
CPT/HCPCS: 81001; 87077; 87086; 87181; 99283; A9270; 81003

== ENCOUNTER 2023-06-28 09:09 | Outpatient (CLI) | payer BC ==
[2023-06-28 09:21] LABS: BASOPHILS # (AUTO) 0.1 10^3/uL (0.0-0.1); BASOPHILS % (AUTO) 0.8 %; EOSINOPHILS # (AUTO) 0.2 10^3/uL (0.0-0.7); EOSINOPHILS % (AUTO) 2.5 %; HCT - HEMATOCRIT 44.8 % (37.0-47.0); HGB - HEMOGLOBIN 14.2 g/dL (12.0-16.0); LYMPHOCYTES # (AUTO) 3.2 10^3/uL (1.5-3.5); MEAN CORPUSCULAR HEMOGLOBIN 27.8 pg (27.0-31.0); MEAN CORPUSCULAR HGB CONC 31.7 g/dL (32.0-36.0); MEAN CORPUSCULAR VOLUME 87.8 fL (81.0-99.0); MEAN PLATELET VOLUME 9.2 fL (7.9-10.8); MONOCYTES # (AUTO) 0.6 10^3/uL (0.0-1.0); MONOCYTES % (AUTO) 7.8 %; NEUTROPHILS # (AUTO) 3.6 10^3/uL (1.5-6.6); NEUTROPHILS % (AUTO) 46.6 %; PLT - PLATELET COUNT 314 10^3/uL (130-450); RED CELL DISTRIBUTION WIDTH 13.5 % (12.0-15.0); WHITE BLOOD COUNT 7.6 x10^3/uL (4.8-10.8)
[2023-06-28 09:48] LABS: ALBUMIN/GLOBULIN RATIO 1.3 (1.0-2.2); ALKALINE PHOSPHATASE 68 IU/L (42-121); ALT ALANINE AMINOTRANSFERASE 12 IU/L (10-60); AST ASPARTATE AMINOTRANSFERASE 13 IU/L (10-42); BILIRUBIN,TOTAL 0.5 mg/dL (0.2-1.0); BUN - BLOOD UREA NITROGEN 27 mg/dL (6-20); CALCIUM 9.5 mg/dL (8.5-10.3); CARBON DIOXIDE - CO2 25 mmol/L (21-32); CHLORIDE 109 mmol/L (101-111); CHOL/HDL RATIO 3.1 (<4.4); CHOLESTEROL 191 mg/dL; CREATININE 0.9 mg/dL (0.6-1.3); GFR - MDRD 65 (>89); GLUCOSE 106 mg/dL (74-104); HDL CHOLESTEROL 62 mg/dL; LDL CHOLESTEROL,CALCULATED 104 mg/dL; LDL/HDL RATIO 1.7 (<4.4); POTASSIUM 3.8 mmol/L (3.5-4.5); SODIUM 140 mmol/L (135-145); TOTAL PROTEIN 7.1 g/dL (6.4-8.9); TRIGLYCERIDES 123 mg/dL (48-352); VLDL CHOLESTEROL 25 mg/dL
[2023-06-28 09:55] LABS: THYROID STIMULATING HORMONE 2.99 uIU/mL (0.34-5.60)
== END 2023-06-28 09:10 | disposition home or self-care (01) ==
LOC: LAB 09:09
PROVIDERS: ATTEND Physician Assistant
DX: I10 Essential (primary) hypertension (principal); E78.5 Hyperlipidemia, unspecified
CPT/HCPCS: 36415; 80053; 80061; 83721; 84443; 85025

== ENCOUNTER 2023-07-19 09:27 | Outpatient (CLI) | payer BC | END 2023-07-19 09:28 | disposition home or self-care (01) | LOC: LAB 09:27 | PROVIDERS: ATTEND Physician Assistant | DX: E55.9 Vitamin D deficiency, unspecified (principal) | CPT/HCPCS: 36415; 82306 ==

== ENCOUNTER 2023-08-26 02:22 | Emergency (ER) | payer BC ==
[2023-08-26 02:39] LABS: BASOPHILS # (AUTO) 0.1 10^3/uL (0.0-0.1); BASOPHILS % (AUTO) 0.5 %; EOSINOPHILS # (AUTO) 0.2 10^3/uL (0.0-0.7); EOSINOPHILS % (AUTO) 2.1 %; HCT - HEMATOCRIT 45.2 % (37.0-47.0); HGB - HEMOGLOBIN 14.5 g/dL (12.0-16.0); LYMPHOCYTES # (AUTO) 4.6 10^3/uL (1.5-3.5); LYMPHOCYTES % (AUTO) 40.7 %; MEAN CORPUSCULAR HEMOGLOBIN 28.6 pg (27.0-31.0); MEAN CORPUSCULAR HGB CONC 32.1 g/dL (32.0-36.0); MEAN CORPUSCULAR VOLUME 89.2 fL (81.0-99.0); MEAN PLATELET VOLUME 9.6 fL (7.9-10.8); MONOCYTES % (AUTO) 8.5 %; NEUTROPHILS # (AUTO) 5.4 10^3/uL (1.5-6.6); NEUTROPHILS % (AUTO) 47.9 %; PLT - PLATELET COUNT 256 10^3/uL (130-450); RED BLOOD COUNT 5.07 10^6/uL (4.20-5.40); RED CELL DISTRIBUTION WIDTH 13.8 % (12.0-15.0); WHITE BLOOD COUNT 11.4 x10^3/uL (4.8-10.8)
--- NOTE | 2023-08-26 02:40 | ED Physician Documentation ---
PD HPI CHEST PAIN - Stated complaint Stated Complaint: CHEST PX - Chief complaint Chief Complaint: Cardiac - History obtained from History obtained from: Patient - Additional information Additional information: 58yF with pmh htn, seizure disorder, daily smoker with FH MO (father in 60s) p/w chest pain on waking radiating to shoulder blades with associated nausea around 2am. denies fever, cough, leg swelling, abdominal pain, soa. she states she has been under a lot of stress. Review of Systems Constitutional: denies: Fever, Chills Cardiac: reports: Chest pain / pressure. denies: Palpitations Respiratory: denies: Dyspnea, Cough GI: reports: Nausea. 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, Hysterectomy - Present Medications Home Medications: Ambulatory Orders Medication Instructions Recorded Confirmed Atorvastatin Calcium 10 mg PO QPM 05/11/19 08/26/23 Ibuprofen/Diphenhydramine Cit 1 tab PO QPM 05/11/19 08/26/23 [Ibuprofen Pm Caplet] Sertraline HCl [Zoloft] 100 mg PO QPM 05/11/19 08/26/23 Topiramate [Topamax] 100 mg PO QPM /02/2108/26/23 - Allergies Allergies/Adverse Reactions: Allergies Allergy/AdvReac Type Severity Reaction Status Date / Time metronidazole [From Flagyl] AdvReac Nausea Verified 08/26/23 02:35 - Social History Does the pt smoke?: Yes Smoking Status: Current every day smoker Does the pt drink ETOH?: No Does the pt have substance abuse?: No - Immunizations Immunizations are current?: Yes - POLST Patient has POLST: No POLST Status: Full Code PD ED PE NORMAL - Vitals Vital signs reviewed: Yes - General General: Alert and oriented X 3, No acute distress, Well developed/nourished - HEENT HEENT: Atraumatic, PERRL, EOMI, Moist mucous membranes, Pharynx benign - Neck Neck: Supple, no meningeal sign - Cardiac Cardiac: RRR - Respiratory Respiratory: No respiratory distress, Clear bilaterally - Abdomen Abdomen: Non tender, Non distended - Derm Derm: Normal color, Warm and dry - Extremities Extremities: No deformity - Neuro Neuro: No motor deficit, No sensory deficit - Psych Psych: Normal mood, Normal affect Results - Vitals Vitals: Vital Signs - 24 hr 08/26/23 08/26/23 08/26/23 02:30 03:00 03:30 Temperature 36.5 C Heart Rate 75 62 Respiratory 17 16 16 Rate Blood Pressure 141/100 H 125/82 H 99/46 L O2 Saturation 100 99 98 08/26/23 08/26/23 04:00 04:30 Temperature Heart Rate 53 L 56 L Respiratory 14 14 Rate Blood Pressure 95/47 L 104/59 L O2 Saturation 96 95 Oxygen O2 Source Room air - EKG (time done) 0228 EKG releavant findings:: EKG personally interpreted by author of this note. Relevant findings are: Rate: Rate (enter#) (79) Rhythm: NSR [place]: Normal Intervals: Normal RI QRS: Normal Ischemia: Normal ST segments - Labs Labs: Laboratory Tests 08/26/23 08/26/23 08/26/23 02:33 02:33 04:46 WBC 11.4 H RBC 5.07 Hgb 14.5 Hct 45.2 MCV 89.2 MCH 28.6 MCHC 32.1 RDW 13.8 Plt Count 256 MPV 9.6 Neut # (Auto) 5.4 Lymph # (Auto) 4.6 H [place] # (Auto) 1.0 Eos # (Auto) 0.2 Baso # (Auto) 0.1 Absolute Nucleated RBC 0.00 Nucleated RBC % 0.0 Sodium 139 Potassium 3.1 L Chloride 107 Carbon Dioxide 22 Anion Gap 10.0 BUN 31 H Creatinine 1.0 Estimated GFR (MDRD) 57 L Glucose 92 Calcium 9.3 Magnesium 1.8 Total Bilirubin 0.4 AST 18 ALT 17 Alkaline Phosphatase 60 Troponin I High Sens 3.6 3.3 Total Protein 7.1 Albumin 4.1 Globulin 3.0 Albumin/Globulin Ratio 1.4 Lipase 36 PD Medical Decision Making - ED course ED course: 58yF presents with atypical chest pain on waking at 2am tonight with associated nausea. EKG and cxr noncontributory. CBC, abdominal panel, trop X 2 all negative with exception of mild leukocytosis and mild hypokalemia. d/w patient and she will f/u with pcp regarding her hctz and try to increase dietary intake of potassium in the meantime. Doubt PE given no soa, cough, or pleurisy and no leg swelling. HEART score 3 (age, risk factors) therefore cardiac event unlikely. advised outpatient f/u with pcp. return precautions given. Departure - Departure Disposition: Home, Self Care Clinical Impression: Chest pain Condition: Stable Instructions: ED Chest Pain NonCardiac Comments: You were seen in the emergency department for chest pain. Your labwork and chest xray/ekg uncovered no emergent issues. You do have borderline low potassium of 3.1 and will need to have this rechecked. Please follow-up with your primary care provider and return to the emergency department if you have any new or worsening symptoms or other concerns. Forms: PCP List
[2023-08-26 02:53] LABS: ALBUMIN 4.1 g/dL (3.2-5.5); ALBUMIN/GLOBULIN RATIO 1.4 (1.0-2.2); BILIRUBIN,TOTAL 0.4 mg/dL (0.2-1.0); CALCIUM 9.3 mg/dL (8.5-10.3); POTASSIUM 3.1 mmol/L (3.5-4.5); TOTAL PROTEIN 7.1 g/dL (6.4-8.9)
[2023-08-26 02:59] LABS: TROPONIN I HIGH SENSITIVITY 3.6 ng/L (2.3-14.8)
[2023-08-26] MEDS ORDERED: POTASSIUM CHLORIDE 20 MEQ/15 ML UDC PO STA (04:28)
[2023-08-26 05:14] LABS: MAGNESIUM 1.8 mg/dL (1.7-2.3)
[2023-08-26 05:17] LABS: TROPONIN I HIGH SENSITIVITY 3.3 ng/L (2.3-14.8)
[2023-08-26 07:07] VITALS: BP 107/75; O2SAT 97
--- NOTE | 2023-08-26 08:24 | XRAY Report ---
PROCEDURE: Chest 1 View X-Ray INDICATIONS: Chest Pain TECHNIQUE: One view of the chest was acquired. COMPARISON: None. FINDINGS: Surgical changes and devices: None. Lungs and pleura: No pleural effusions or pneumothorax. Lungs are clear. Mediastinum: Mediastinal contours appear normal. Heart size is normal. Bones and chest wall: No suspicious bony lesions. Overlying soft tissues appear unremarkable. IMPRESSION: No acute cardiopulmonary process. Findings are concordant with preliminary interpretation provided by [facility]. Reviewed by: Eddie Lehman MD on 08/26/2023 8:22 AM PST Approved by: Eddie Lehman MD on 08/26/2023 8:22 AM PST Station ID: [id number]
== END 2023-08-26 07:06 | disposition home or self-care (01) ==
LOC: ED 02:22
DX: R07.9 Chest pain, unspecified (principal); F17.200 Nicotine dependence, unspecified, uncomplicated; I10 Essential (primary) hypertension; Z79.899 Other long term (current) drug therapy
CPT/HCPCS: 36415; 71045; 80053; 83690; 83735; 84484; 85025; 93005; 99283; 99284; A9270

== ENCOUNTER 2023-09-08 08:44 | Outpatient (CLI) | payer BC ==
[2023-09-08 09:09] LABS: ALBUMIN/GLOBULIN RATIO 1.3 (1.0-2.2); BILIRUBIN,TOTAL 0.4 mg/dL (0.2-1.0); CALCIUM 9.3 mg/dL (8.5-10.3); POTASSIUM 3.5 mmol/L (3.5-4.5); TOTAL PROTEIN 7.2 g/dL (6.4-8.9)
== END 2023-09-08 08:45 | disposition home or self-care (01) ==
LOC: LAB 08:44
PROVIDERS: ATTEND Physician Assistant
DX: I10 Essential (primary) hypertension (principal)
CPT/HCPCS: 36415; 80053

== ENCOUNTER 2023-10-18 10:36 | Outpatient (CLI) | payer BC ==
[2023-10-18 10:45] LABS: BASOPHILS # (AUTO) 0.1 10^3/uL (0.0-0.1); BASOPHILS % (AUTO) 0.7 %; EOSINOPHILS # (AUTO) 0.1 10^3/uL (0.0-0.7); EOSINOPHILS % (AUTO) 1.3 %; HCT - HEMATOCRIT 45.9 % (37.0-47.0); HGB - HEMOGLOBIN 14.6 g/dL (12.0-16.0); LYMPHOCYTES # (AUTO) 3.3 10^3/uL (1.5-3.5); LYMPHOCYTES % (AUTO) 35.2 %; MEAN CORPUSCULAR HGB CONC 31.8 g/dL (32.0-36.0); MEAN CORPUSCULAR VOLUME 87.9 fL (81.0-99.0); MEAN PLATELET VOLUME 9.4 fL (7.9-10.8); MONOCYTES # (AUTO) 0.8 10^3/uL (0.0-1.0); MONOCYTES % (AUTO) 8.5 %; NEUTROPHILS % (AUTO) 53.9 %; PLT - PLATELET COUNT 305 10^3/uL (130-450); RED BLOOD COUNT 5.22 10^6/uL (4.20-5.40); RED CELL DISTRIBUTION WIDTH 13.9 % (12.0-15.0); WHITE BLOOD COUNT 9.3 x10^3/uL (4.8-10.8)
[2023-10-18 11:01] LABS: CALCIUM 9.7 mg/dL (8.5-10.3); CREATININE 1.1 mg/dL (0.6-1.3); POTASSIUM 3.7 mmol/L (3.5-4.5)
== END 2023-10-18 10:37 | disposition home or self-care (01) ==
LOC: LAB 10:36
PROVIDERS: ATTEND Physician Assistant
DX: E87.6 Hypokalemia (principal); E55.9 Vitamin D deficiency, unspecified; D72.829 Elevated white blood cell count, unspecified
CPT/HCPCS: 36415; 80048; 82306; 85025

== ENCOUNTER 2023-10-27 08:29 | Day surgery (SDC) | payer BC ==
[2023-10-27] MEDS: LACTATED RINGERS 1,000 ML IV ONE (08:40)
--- NOTE | 2023-10-27 09:20 | ANESTHESIA ---
Pre-Anesthesia VS, & Labs - Diagnosis family history of colon CA, personal hx of polyps - Procedure colonoscopy Vital Signs: Temp Pulse Resp BP Pulse Ox O2 Flow Rate 36.4 C L 81 12 137/90 H 100 10/27/23 08:40 10/27/23 08:40 10/27/23 08:40 10/27/23 08:40 10/27/23 08:40 Height: 5 ft 5 in Weight (kg): 101.9 kg Body Mass Index: 37.3 BMI Classification: Obese - NPO >8 hours - Is Patient ?: No Home Medications and Allergies Atorvastatin Calcium 10 mg PO QPM 05/11/19 Ibuprofen/Diphenhydramine Cit [Ibuprofen Pm Caplet] 1 tab PO QPM 05/11/19 Sertraline HCl [Zoloft] 100 mg PO QPM 05/11/19 Topiramate [Topamax] 100 mg PO QPM 05/11/19 Allergies/Adverse Reactions: Allergies Allergy/AdvReac Type Severity Reaction Status Date / Time morphine Allergy Rash Verified 10/26/23 13:30 metronidazole [From Flagyl] AdvReac Nausea Verified 08/26/23 02:35 Anes History & Medical History - Anesthetic History Anesthesia Complications: reports: No previous complications Family history of Anesthesia Complications: Denies Family history of Malignant Hyperthermia: Denies - Medical History Cardiovascular: reports: Hypertension Pulmonary: reports: None Gastrointestinal: reports: None Urinary: reports: None Neuro: reports: Migraines, Seizure disorder Musculoskeletal: reports: Osteoarthritis Endocrine/Autoimmune: reports: None Blood Disorders: reports: None Skin: reports: None Smoking Status: Current every day smoker - Surgical History General: reports: Other Gynecologic: reports: section Orthopedic: reports: Hip replacement, Knee replacement Exam General: Alert, Oriented x3, Cooperative Dental: WNL Mouth Openin Fingerbreadth Neck Mobility: Normal Mallampati classification: II Thyromental Distance: 4-6 cm Respiratory: Lungs clear Cardiovascular: Regular rate Plan Anesthesia Type: General, Total IV Consent for Procedure(s) Verified and Reviewed: Yes Code Status: Attempt Resuscitation ASA classification: 2-Mild systemic disease Is this case an emergency?: No
[2023-10-27] MEDS ORDERED: PROPOFOL 500 MG/50 ML 500 MG/50 ML VIAL ONE (09:23)
--- NOTE | 2023-10-27 10:06 | HISTORY & PHYSICAL EXAMINATION ---
Chief Complaint - Chief Complaint Chief Complaint: here for colonoscopy History of Present Illness - History Obtained From Records Reviewed: yes History obtained from: pt Exam Limitations: none - History of Present Illness HPI Comment/Other: history colon polyps and due for surveillance History - Past Medical History Cardiovascular: reports: Hypertension Respiratory: reports: None Neuro: reports: Migraines, Seizure disorder Endocrine/Autoimmune: reports: None GI: reports: None : reports: None HEENT: reports: None Psych: reports: Anxiety Musculoskeletal: reports: Osteoarthritis Derm: reports: None MRSA Hx?: No - Past Surgical History General: reports: Other Ortho: reports: Hip replacement, Knee replacement /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 - Family & Social History Social History Notes: 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 [employer] - POLST Patient has POLST: No POLST Status: Full Code Meds/Allgy - Home Medications Home Medications: Ambulatory Orders Medication Instructions Recorded Confirmed Atorvastatin Calcium 10 mg PO QPM 05/11/19 10/26/23 Ibuprofen/Diphenhydramine Cit 1 tab PO QPM 05/11/19 10/26/23 [Ibuprofen Pm Caplet] Sertraline HCl [Zoloft] 100 mg PO QPM 05/11/19 10/26/23 Topiramate [Topamax] 100 mg PO QPM /02/2110/26/23 - Allergies Allergies/Adverse Reactions: Allergies Allergy/AdvReac Type Severity Reaction Status Date / Time morphine Allergy Rash Verified 10/26/23 13:30 metronidazole [From Flagyl] AdvReac Nausea Verified 08/26/23 02:35 Review of Systems - Other Findings Other Findings: 10 pt ros as above otherwise unremarkable Exam - Vital Signs Vital Signs: Vital Signs x48h Temp Pulse Resp BP Pulse Ox 10/27/23 08:40 36.4 C L 81 12 137/90 H 100 - Physical Exam General Appearance: positive: No acute distress, Alert Eyes Bilateral: positive: PERRL ENT: positive: No signs of dehydration Neck: positive: No JVD, Trachea midline Respiratory: positive: No respiratory distress Cardiovascular: positive: Regular rate & rhythm Abdomen: positive: No distention Neurologic/Psychiatric: positive: Oriented x3 Conclusion/Plan - Problem List (1) Colon cancer screening Conclusion/Plan: hx colon polyps. plan colonoscopy. parq held and consent obtained
[2023-10-27] MEDS ORDERED: MIDAZOLAM 2 MG/2 ML VIAL ONE (10:12)
[2023-10-27] MEDS: LACTATED RINGERS 500 ML IV ONE ×2 (10:46→11:08)
[2023-10-27] MEDS ORDERED: PROPOFOL 200 MG/20 ML VIAL IVP ONE (10:51)
[2023-10-27 11:42] VITALS: BP 136/72; O2SAT 99
--- NOTE | 2023-10-27 17:12 | ANESTHESIA POST OP EVALUATION ---
Anesthesia Post Eval - Post Anesthesia Eval Vitals: Last Vital Signs Temp 36.3 C L 10/27/23 11:30 Pulse 62 10/27/23 11:30 Resp 16 10/27/23 11:30 BP 136/72 H 10/27/23 11:30 Pulse Ox 99 10/27/23 11:30 O2 Flow Rate CV Function Including HR & BP: Stable Pain Control: Satisfactory Nausea & Vomiting: Negative Mental Status: Baseline Respiratory Status: Airway Patent Hydration Status: Satisfactory Anesthesia Complications: None
== END 2023-10-27 08:30 | disposition home or self-care (01) ==
LOC: SDS 08:29
PROVIDERS: ATTEND Surgery
DX: Z12.11 Encounter for screening for malignant neoplasm of colon (principal); K57.30 Diverticulosis of large intestine without perforation or abscess without bleeding; Z86.010 Personal history of colon polyps; E66.9 Obesity, unspecified; Z68.37 Body mass index [BMI] 37.0-37.9, adult
CPT/HCPCS: 45378; J7120

== ENCOUNTER 2024-03-29 13:19 | Outpatient (CLI) | payer BC ==
[2024-03-29 13:26] LABS: BILIRUBIN,URINE NEGATIVE (NEGATIVE); GLUCOSE, URINE (UA) NEGATIVE (NEGATIVE); KETONES,URINE (UA) NEGATIVE (NEGATIVE); LEUKOCYTE ESTERASE, URINE NEGATIVE (NEGATIVE); NITRITE,URINE NEGATIVE (NEGATIVE); OCCULT BLOOD,URINE LARGE (NEGATIVE); PH,URINE 5.5 PH (5.0-7.5); PROTEIN,URINE TRACE mg/dL (NEGATIVE); UROBILINOGEN,URINE 0.2 (NORMAL) E.U./dL (NORMAL)
[2024-03-29 13:45] LABS: BACTERIA,URINE Few /HPF (None Seen); CLARITY,URINE HAZY (CLEAR); SQUAMOUS EPITHELIAL CELL,UR FEW Squamous (<= Few); WBC,URINE 0-3 /HPF (0-5)
== END 2024-03-29 13:20 | disposition home or self-care (01) ==
LOC: LAB 13:19
PROVIDERS: ATTEND Physician Assistant
DX: R30.0 Dysuria (principal)
CPT/HCPCS: 81001; 87086